=== PATIENT | female | born 1970 | race Asian ===

== ENCOUNTER 2017-01-22 12:48 | Day surgery (SDC) | payer OTHER ==
[~2017-01-22] VITALS: Ht 154.9 cm; Wt 63.5 kg
[~2017-01-22 12:48] MED LIST: 0.9% Sodium Chloride 1,000 ML IV SCH; HYOS0.1281 SL; PANT40TA2 PO; SUCR1TAB30 PO; Sodium Chloride LOK Flush 10 mL Syringe IV PRN; fentaNYL-PF 50 mCg/mL 2 mL Inj IVPUSH PRN
[2017-01-22] MEDS ORDERED: ACET325T51 PO (14:27)
[2017-01-22 14:55] VITALS: BP 122/69; PULSE 70; RESP 16; O2SAT 100
--- NOTE | 2017-01-22 16:29 | PCM.ENDEGD ---
EGD Date of Service: January 22, 2017 Physician Joseph Espinosa MD Pre Procedure Diagnosis: Abdominal pain. She was telling us that she has this intermittent burning sensation of the chest lasting for 5 minutes without any radiation radiation immediately after she gets abdominal pain. It only happens with abdominal pain. It is not related with activity. Occurs randomly. It can occur when she is resting. When she has this symptom, she has no other symptoms such as diaphoresis and dizziness lightheadedness and shortness of breath. Post Procedure Dx & Findings: Gastric ulcers, prominent duodenal fold Procedure Esophagogastroduodenoscopy PROCEDURE IN DETAIL: After proper sedation, Olympus video endoscope was inserted into patient's mouth and esophagus was successfully intubated. Scope introduced esophagus. Esophagus showed normal shiny whitish mucosa consistent with squamous cell component. Z line was intact at 38 cm from the incisors. Stomach further events to the stomach. Stomach showed normal shiny mucosa with normal appearing rugae folds. In the antrum, there was a 5 mm ulcer which was biopsied. There was also a small erosion which was also biopsied. In the pyloric channel, there was a 1 cm ulcer which was also biopsied. Cardia fundus body antrum pylorus were all visualized. Retroflexion was done. Stomach was easily inflated and deflatable using air. Scope further events to the distal duodenum. Duodenum revealed normal villous structures with normal appearing folds without any mass ulcer erosion. Near the ampulla, prominent folds noted. Biopsies obtained. Impression Prominent duodenal fold Gastric ulcers Recommendation Prilosec 20 twice a day Avoid NSAIDs Colonoscopy Presedation Assessment Risks and Benefits Informed consent was obtained from the patient after all risks and benefits including but not limited to drug reaction, infection, pain, bleeding, perforation, as well as alternatives were discussed. Patient monitoring Continuous pulse oximetry, cardiac monitoring, blood pressure monitoring, IV access, and oxygen at 2L per nasal cannula. Periprocedural Fentanyl: Fentanyl 100mcg Incrementally Midazolam: Midazolam 4mg Incrementally Complications There were no periprocedural complications identified. Post Procedure Plan Post Procedure Recommendations 1. Restrict activities today. 2. Resume normal activities in the morning. 3. Resume medications. 4. GERD behavioral modification: - Avoid fatty, acidic, spicy, large meals - Do not lie down after meals - Do not eat or drink anything for at least 2 1/2 hours before going to bed at night - Discontinue tobacco and alcohol - Decrease or avoid caffeine - Avoid chocolate and mints - Decrease weight - Avoid aspirin and non steroidal anti-inflammatory agents (NSAID) such as Aleve, Advil, Mobic, Naproxen, Ibuprofen, etc 5. Add proton pump inhibitor. Take 30 minutes before 1st meal of the day. 6. Patient informed of normal post procedure side effects as bloating, drowsiness, blood streaking in the stool 7. If gastric biopsy reveal H.pylori, continue with appropriate treatment 8. If small bowel biopsy reveals celiac, continue with appropriate treatment 9. Please don't hesitate to call me with any questions Joseph Espinosa MD January 22, 2017 16:29
[2017-01-22 16:35] VITALS: BP 128/80; PULSE 77; RESP 16; O2SAT 94
[2017-01-22 16:45] VITALS: BP 131/65; PULSE 79; RESP 16; O2SAT 92
[2017-01-22 16:55] VITALS: BP 114/65; PULSE 76; RESP 16; O2SAT 94
--- NOTE | 2017-01-24 16:32 | PATH ---
SURGICAL PATHOLOGY Attending Physician:Joseph Espinosa M.D. CASE STATUS: Signed Out PATIENT NAME: SOFIA ROSA PID: [id number] : 1970 DATE COLLECTED:01/22/2017 00:00 SPECIMEN: 1: Gastric, Biopsy 2: Duodenum, Biopsy CLINICAL HISTORY: 1. GASTRIC BXS 2. PROMINENT BULB NEAR AMPULLA OF DUODENUM BX FINAL DIAGNOSIS: 1. Gastric Biopsies: Portions of antral and body-type mucosa with chronic active gastritis and detached fragments of fibrinopurulent exudate. Organisms morphologically consistent with Helicobacter are present by H&E stain. Intestinal metaplasia is present. Negative for dysplasia and malignancy. 2. Duodenal Bulb Near Ampulla Of Duodenum: Duodenal mucosa with no diagnostic abnormality. Negative for active inflammation, features of sprue, dysplasia, or malignancy. ICD10: K29.7 GROSS DESCRIPTION: The specimen is received in two formalin filled containers labeled with the patient's name. 1). The specimen is sublabeled "gastric" and consists of multiple portions of tissue which aggregate to 0.4 x 0.4 x 0.2 CM. The specimen is entirely submitted in cassette 1A. 2). The specimen is sublabeled "prominent bulb near ampulla of duodenum" and consists of 2 portions of tissue which aggregate to 0.3 x 0.3 x 0.2 CM. The specimen is entirely submitted in cassette 2A. 01/23/2017 [facility] ICD-9 CODES: CPT CODES: 1: 51877 2: 64484 Electronically Signed Out Gay Braxton MD [facility] Pathology [facility], [place] [address] Technical component performed at [facility], [address] [place] [address] [address], [place], [address]
[2017-01-30] MEDS ORDERED: ACET-171 PO (11:49)
== END 2017-01-22 23:59 | disposition home or self-care (01) ==
LOC: END 12:48
PROVIDERS: ATTEND Internal Medicine
DX: K29.50 Unspecified chronic gastritis without bleeding (principal); K25.9 Gastric ulcer, unspecified as acute or chronic, without hemorrhage or perforation; K31.89 Other diseases of stomach and duodenum
CPT/HCPCS: 43239; 88305; 93005; G0500; J7030

== ENCOUNTER 2017-01-31 07:03 | Day surgery (SDC) | payer OTHER ==
[~2017-01-31] VITALS: Ht 154.9 cm; Wt 62.5 kg
[2017-01-31] VITALS (8 sets, daily range): BP systolic 118–140; BP diastolic 60–72; PULSE 9–98; RESP 9–21; O2SAT 90–99
[2017-01-31] MEDS: Lactated Ringer's 1,000 ML IV SCH ×2 (05:36→08:06)
[~2017-01-31 07:03] MED LIST changes: -0.9% Sodium Chloride 1,000 ML IV SCH; +ACET-171 PO; -HYOS0.1281 SL; -PANT40TA2 PO; -SUCR1TAB30 PO; -Sodium Chloride LOK Flush 10 mL Syringe IV PRN; -fentaNYL-PF 50 mCg/mL 2 mL Inj IVPUSH PRN
[2017-01-31] MEDS ORDERED: Propofol 10,000 mCg/mL 20 mL Inj ONE (07:04)
[2017-01-31] MEDS ORDERED: Ondansetron 2 mg/mL 2 mL Inj ONE (07:04)
[2017-01-31] MEDS ORDERED: Succinylcholine Chloride 20 mg/mL 5 mL Inj ONE (07:04)
[2017-01-31] MEDS ORDERED: fentaNYL-PF 50 mCg/mL 2 mL Inj ONE (07:04)
[2017-01-31] MEDS ORDERED: Dexamethasone 4 mg/mL Inj ONE (07:04)
[2017-01-31] MEDS ORDERED: Rocuronium 10 mg/mL 5 mL Inj ONE (07:04)
--- NOTE | 2017-01-31 07:33 | PCM.HPANE ---
Patient Data Date of Service: January 31, 2017 Surgeon Admitting Provider: Attending Provider:Breanna Manley MD Primary Care Physician:Elizabeth Olson DO Other Provider:Miriam Wheeler Anesthesia Reason for Visit Chronic Cholecystitis Ht/WT & BMI Height (Feet): 5 Height (Inches): 1 Weight (Kilograms): 66.043 Body Mass Index 27.00 Allergies Coded Allergies: No Known Allergies (Unverified , 01/30/17) Past Anesthesia History Anesthesia History: Denies:: Abnormal Airway, Difficult Intubation, Fam Anesthesia Reaction, Fam Malignant Hypertherm Diabetes History Hx Diabetes?: No (01/26/17 HGB A1C 6.4) MRSA MRSA: No Medications Hypertension Medication: No Home Meds Incl Beta Lilia: No Reported Medications Acetaminophen 500 Mg Civdtg141-7,000 Mg PO Q8H PRN For Pain 01/30/17 Discontinued Reported Medications Acetaminophen 325 Mg [id number] Mg PO Q4H PRN For Pain Ref 0 01/22/17 Discontinued Scripts Hyoscyamine SL (Levsin SL)0.125 Mg Tab.subl0.125 Mg SL TID #20 TABLET Prov:Leeann Ponce MD 06/26/16 Sucralfate (Carafate)1 Gm Tablet1 Gm PO QID #40 TABLET Ref 0 Prov:Vineet Nayak 06/19/[address] (Protonix)40 Mg [id number] Mg PO TID #30 TABLET Ref 0 Prov:Vineet Nayak 06/19/16 History History of ENT Problems?: No HEENT History: Denies:: Abnormal Airway Difficult Intubation Hearing Problem Denture Type: None Teeth Condition: Broken Teeth Hx of Heart Problems?: Yes Cardiovascular History: Positive for:: Chest Pain (r/t cholecystitis) Denies:: Congestive Heart Failure Heart Murmur Hypertension Pacemaker Other Cardiac History: HX ANEMIA R/T GI BLEED Hx of Respiratory Problem?: No Respiratory History: Denies:: Tuberculosis Use of C-PAP Machine Hx Neurologic Problems?: No Neurological History: Denies:: CVA Hx of GI Problems?: Yes Hx of Problems?: No Female Hx: Denies:: Currently Skin History: Denies:: History Skin Disorders? Pressure Ulcers Hx Musculoskeletal Problems?: No Musculoskeletal History: Denies:: Back Injury (C/OF BACK PAIN) Hx of Psycho/Social Problems?: No Hx Surgeries?: No Hx Any Other Health Problems?: No Other History: Denies:: Cancer Endocrine Disease Hospitalization Thyroid Disease History Blood Transfusions: Denies:: Blood Transfusions Hx Diabetes: No (01/26/17 HGB A1C 6.4) Hx Alcohol Use: NoHx Substance Use: No Smoking Status: Never Smoker Have You Smoked inLast 12 mo: No Stop/Bang Treated for Sleep Apnea?: No Do You Have a CPAP Machine?: No S-Snoring: Do You Snore Loudly: No T-Tired: feel tired, fatigued: No O-Obsered: Observed not breath: No P-Blood Pressure: treated: No B- Body Mass Index > 35 kg/m2: No A- Age over 50: No N- Neck Large Circumference: No G- Gender Male: No DIANA Total Score: 0 DIANA Risk Assessment: Low Risk, <3 Yes Risk Assessment Category Category 1A: Patient has history of documented sleep apnea, and HAS NOT received any narcotic, sedative or anesthesia administration during this stay. Category 1B: Patient has history of documented sleep apnea, and HAS received any narcotic , sedative or anesthesia administration during this stay Category 2: Patient has SUSPECTED Obstructive Sleep Apnea, and HAS received any narcotic , sedative or anesthesia administration during this stay. Category 3: Patient has SUSPECTED Obstructive Sleep Apnea and HAS NOT received narcotic, sedative or anesthesia administration during this stay. Category 4: Outpatient in Procedural Areas with known sleep apnea or who screen positive for High Risk via the STOP/BANG questionnaire. Exam Exam General Appearance: Alert, Oriented X3, Cooperative, No Acute Distress HEENT/AIRWAY: MP 2, Other (some broken teeth, none missing) Lungs: Clear to Auscultation Heart: Exam Unremarkable, Regular Rate/Rhythm, Normal S1, Normal S2, No Murmurs /Rubs/Gallops Meds/Labs/Diagnostics Admission Meds Current Medications Lactated Ringer's (Lr) 1,000 ml @ 120 mls/hr Q8H20M IV Last administered on t 05:36; Start 01/31/17 at 05:00; Stop 01/31/17 at 13:19 Plan Impression Patient chart reviewed, patient interviewed and anesthestic plan with risks, benefits, and alternatives discussed, and informed consent obtained. NPO per Anesth. Guidelines: Yes ASA Physical Status: ASA1 Normal Healthy Anesthetic Plan: GA Bene/Risks/Altern/Consents: Yes HP Complete Prior to Induction: Yes Jeff Prakash MD January 31, 2017 07:33
[2017-01-31] MEDS ORDERED: Lactated Ringer's 1,000 ML IV SCH (07:47)
[2017-01-31] MEDS ORDERED: Lactated Ringer's 500 ML IV PRN (07:47)
[2017-01-31] MEDS ORDERED: HYDROmorphone 1 mg/mL Inj IVPUSH PRN (07:50)
[2017-01-31] MEDS ORDERED: Dexamethasone 4 mg/mL Inj IVPUSH PRN (07:50)
[2017-01-31] MEDS ORDERED: Phenylephrine 10,000 mCg/mL Inj IVPUSH PRN (07:50)
[2017-01-31] MEDS ORDERED: fentaNYL-PF 50 mCg/mL 2 mL Inj IVPUSH PRN (07:50)
[2017-01-31] MEDS ORDERED: EPHEDrine Sulfate 50 mg/mL Inj IVPUSH PRN (07:50)
[2017-01-31] MEDS ORDERED: Ondansetron 2 mg/mL 2 mL Inj IVPUSH PRN (07:50)
[2017-01-31] MEDS ORDERED: Bupivacaine-MPF 0.5% 30 mL Inj INFILTRATE ONE (08:06)
[2017-01-31] MEDS ORDERED: oxyCODONE-Acetamin 5-325 mg Tablet PO PRN (09:10)
--- NOTE | 2017-01-31 09:14 | PCM.SURGOP ---
Surgical Operative Report Date of Service: January 31, 2017 Pre Operative Diagnosis Chronic cholecystitis Post Operative Diagnosis Chronic cholecystitis Procedure: Laparoscopic cholecystectomy Surgeon and Road Driver: Surgeon: Breanna Manley MD Assistants: Mukesh Stephens PA-C; ORLANDO White The presence of an travel assistant was necessary for dissection and retraction. Indication for Procedure This is a 46-year-old woman who presented with postprandial abdominal pain localized to the right upper quadrant and epigastrium. She underwent significant workup by her washcloth folder. On HIDA scan she was found to have an impaired gallbladder ejection fraction of 19%. Her overall clinical picture was consistent with chronic cholecystitis, and therefore she was consented to laparoscopic cholecystectomy. Findings: Mild inflammation of the gallbladder, consistent with chronic cholecystitis. Procedure Details The patient was brought to the operating room and placed in supine position. General endotracheal anesthesia was smoothly induced. Antibiotics were infused. A warming blanket and SCDs were placed. A foot board was placed. The operative field was prepped and draped in sterile fashion. A pause was performed to confirm the correct patient, procedure, site, and side. A transverse 10 mm incision was made just below the umbilicus. The abdomen was entered under direct vision using a Za port. Three additional 5 mm ports were placed in the epigastrium and right upper quadrant. The gallbladder was identified and lifted cephalad. Dissection then proceeded to identify the cystic duct, cystic artery, and to expose the bottom one third of the cystic plate. Once there were two and only two structures entering the gallbladder, the cystic duct was clipped on the gallbladder and patient side, and the cystic artery was clipped twice on the patient's side and once on the gallbladder side , and both were then divided. The gallbladder was then removed from its bed on the liver with electrocautery. Prior to completely removing the gallbladder, a final look was taken at the stump of the cystic artery and cystic duct, and there was no bleeding or bile leak. The gallbladder was then fully removed from the liver and placed in an EndoCatch bag and removed. The three 5 mm ports were removed under direct vision, the 10 mm mid abdominal port was removed , and a [id number]-ynild 0 PCS was used to close the fascia. There was no fascial defect at the end of the case. 0.5% Marcaine with epinephrine was infused at all port sites for postoperative analgesia. The skin was closed with subcuticular 4-0 Monocryl. Sterile dressings were placed. The patient was awakened from general anesthesia and taken to the postoperative care unit in good condition. Complications There were no periprocedural complications identified. Surgical Specimen Removed: Yes Specimen sent to Pathology: Yes Surgical Specimen description: Gallbladder Anesthetic Plan: GA Grafts, Implants: None Output, Estimated Blood Loss: 2 (ML) Blood Administration during burch: No Breanna Manley MD January 31, 2017 09:14
--- NOTE | 2017-01-31 10:10 | PCM.ANEP1 ---
Post Anesthesia PACU Phase 1 Assessment Vital Signs Vital Signs Date Time Temp Pulse Resp B/P Pulse Ox O2 Delivery O2 Flow Rate FiO2 01/31/17 09:37 36.4 92 21 125/61 98 Nasal Cannula 3 01/31/17 09:33 79 14 129/66 96 Nasal Cannula 3 01/31/17 09:25 98 19 131/66 99 Nasal Cannula 3 01/31/17 09:15 95 14 127/68 97 Nasal Cannula 3 01/31/17 09:11 74 14 118/60 98 Nasal Cannula 3 01/31/17 09:05 81 9 128/62 96 Nasal Cannula 3 01/31/17 09:03 37.2 86 12 140/72 90 Room Air 01/31/17 07:25 37.0 78 18 133/63 98 Room Air Anesthetic Administered: GA Level of Alertness: Sleepy, easy to arouse PORTER's with Equal Strength: Yes Pain: No Nausea or Vomiting: No CV Function & Hydration Stable: Yes Airway Device: None Oxygen Delivery: Room Air Lungs: Clear to Auscultation Dermatome Level: Full Sensation PACU Phase 2 Assessment Complications: No Follow up Care: N/A Patient Instructions Provided: Yes Jeff Prakash MD January 31, 2017 10:10
--- NOTE | 2017-02-01 13:48 | PATH ---
SURGICAL PATHOLOGY Attending Physician:Breanna Manley MD CASE STATUS: Signed Out PATIENT NAME: SOFIA ROSA PID: [id number] : 1970 DATE COLLECTED:01/31/2017 18:50 SPECIMEN: Gallbladder CLINICAL HISTORY: CHRONIC CHOLECYSTITIS 1). GALLBLADDER FINAL DIAGNOSIS: 1.GALLBLADDER: ACALCULOUS MILD CHRONIC CHOLECYSTITIS. ICD10 K81.1 GROSS DESCRIPTION: The specimen is received in one formalin filled container labeled with the patient's name, sublabeled "gallbladder" and consists of an intact 6.0 x 2.0 x 2.0 CM gallbladder. The serosa is smooth. The cystic duct is possibly identified. The wall is 0.2-0.3 CM in thickness. The mucosa is a light to dark green in color. The lumen contains a dark green mucoid material and no calculus are noted. 5 agricultural sales representative sections are submitted in one cassette. 01/31/2017 [facility] MICRO DESCRIPTION: See diagnosis. ICD-9 CODES: CPT CODES: 1: 47768 Electronically Signed Out Ayush Gamez MD [facility] Pathology [facility] [address], [place] [address] Technical component performed at [facility], [facility] [address], [place], [address]
== END 2017-01-31 23:59 | disposition home or self-care (01) ==
LOC: SAS 07:03
PROVIDERS: ATTEND Surgery
DX: K81.1 Chronic cholecystitis (principal)
CPT/HCPCS: 47562; 88304; J0330; J1100; J1885; J2250; J2405; J3010; J7120